=== PATIENT | female | born 1965 | race Caucasian/White ===

== ENCOUNTER 2021-04-26 09:14 | Day surgery (SDC) | payer OTHER ==
[2021-04-22 12:04] VITALS: BMI 29.0
[2021-04-26] MEDS ORDERED: ROPIVACAINE HCL 0.5% 30ML VIAL ONE (11:10)
[2021-04-26] MEDS ORDERED: PROPOFOL 20 ML ONE ×5 (11:24→13:07)
[2021-04-26] MEDS ORDERED: MIDAZOLAM HCL 2 MG/2 ML SINGLE DOSE VIAL ONE (11:46)
[2021-04-26] MEDS ORDERED: ROPIVACAINE HCL/PF 100 MG/20 ML VIAL ONE (11:46)
[2021-04-26] MEDS ORDERED: oxyCODONE HCL 5 MG TABLET PO PRN ×2 (12:04)
[2021-04-26] MEDS ORDERED: ONDANSETRON 4 MG/2 ML VIAL IVPUSH PRN (12:04)
[2021-04-26] MEDS ORDERED: LACTATED RINGERS SOLUTION 1,000 ML IV SCH (12:15)
[2021-04-26] MEDS ORDERED: BUPIVACAINE HCL/PF 0.25% (2.5MG/ML) 10 ML VIAL ONE (13:16)
[2021-04-26] MEDS ORDERED: BUPIVACAINE HCL/PF 2.5 MG/ML - 30 ML VIAL IJ ONE (13:19)
[2021-04-26] MEDS ORDERED: ONDANSETRON 4 MG/2 ML VIAL ONE (14:40)
[2021-04-26] MEDS ORDERED: KETOROLAC TROMETHAMINE 30 MG/1 ML VIAL ONE (14:47)
[2021-04-26] MEDS ORDERED: ACETAMINOPHEN INJECTION 100 ML IVPB ONE (14:47)
[2021-04-26] MEDS ORDERED: ACETAMINOPHEN 1000 MG/100 ML BAG IVPB ONE ×3 (14:50→15:15)
[2021-04-26] MEDS ORDERED: KETOROLAC TROMETHAMINE 30 MG/1 ML VIAL IVPUSH ONE ×2 (14:52→15:15)
[2021-04-26] MEDS ORDERED: oxyCODONE HCL 5 MG TABLET ONE (15:19)
[2021-04-26 15:30] VITALS: PULSE 68; TEMP 98.1
[2021-04-26 15:46] VITALS: BP 145/92
== END 2021-04-26 16:42 | disposition home or self-care (01) ==
LOC: FASU 09:14
PROVIDERS: ATTEND Orthopaedic Surgery Sports Medicine
PROC: 0RBK4ZZ Excision of Left Shoulder Joint, Percutaneous Endoscopic Approach (ICD-10-PCS; 2021-04-26)
PROC: 0LS40ZZ Reposition Left Upper Arm Tendon, Open Approach (ICD-10-PCS; 2021-04-26)
PROC: 0PBB4ZZ Excision of Left Clavicle, Percutaneous Endoscopic Approach (ICD-10-PCS; principal; 2021-04-26 13:01)
DX: M75.22 Bicipital tendinitis, left shoulder (principal); M89.512 Osteolysis, left shoulder; M75.42 Impingement syndrome of left shoulder; M24.112 Other articular cartilage disorders, left shoulder
CPT/HCPCS: 88304-TC; 94760